=== PATIENT | male | born 1995 | race Hispanic/Latino ===

== ENCOUNTER 2022-07-21 10:57 | Outpatient (CLI) | payer BC ==
[~2022-07-21 10:57] MED LIST: Iopamidol-370 76% 500 ML 1 ML ONE
== END 2022-07-21 10:58 | disposition home or self-care (01) ==
LOC: BICCT 10:57
PROVIDERS: ATTEND Family Medicine
DX: R16.0 Hepatomegaly, not elsewhere classified (principal); K76.9 Liver disease, unspecified
CPT/HCPCS: 74170